=== PATIENT | female | born 2000 | race Caucasian/White ===

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

== ENCOUNTER 2022-11-10 15:51 | Emergency (ER) | payer OTHER ==
--- NOTE | 2022-11-10 16:11 | ED ---
General Adult HPI - General Source: patient, RN notes reviewed Mode of arrival: ambulatory Limitations: no limitations <Nhan Han - Last Filed: 11/10/22 16:08> <Kenyatta Self - Last Filed: 11/12/22 16:44> - General Stated complaint: Syncope Time Seen by Provider: 11/10/22 16:08 - History of Present Illness Initial comments: 22-year-old female presents emergency Department via EMS chief complaint of near syncopal episode. Patient states that she was at work when she started having some difficult deep breathing states that she lost her hearing and had some tunnel vision. Patient states that she never fully passed out. She has had episodes like this in the past. Patient denies any chest pain palpitations shortness of breath currently. Denies any chance . Denies any current headache. (Nhan Han) 22-year-old female presents emergency Department with syncope. States that she was at work at [employer] where she had an episode of passing out. Happened within 15 minutes of her being at work. States that she ate poorly this morning. Had a few call me bears and handful of peanuts. Went to work where she suddenly felt short of breath and had tunnel vision. She felt nauseated and had an episode of vomiting. States that she passed out and had stool incontinence. To me, she reports to full passing out episode. There is no seizure-like activity. She did not hurt herself that she was lowered to the floor. No recent illnesses. Denies any abnormal vaginal bleeding or discharge. No concern for . She reports to feeling back to her baseline at this time. No history of cardiac disease. No family history of sudden cardiac . Admits to previous episodes like this in the past No other alleviating, precipitating or modifying factors (Kenyatta Self) - Related Data Home Medications Medication Instructions Recorded Confirmed No Known Home Medications 11/10/22 11/10/22 Allergies Allergy/AdvReac Type Severity Reaction Status Date / Time No Known Allergies Allergy Verified 11/10/22 19:50 Review of Systems ROS Other: All systems not noted in ROS Statement are negative. <Nhan Han - Last Filed: 11/10/22 16:08> ROS Other: All systems not noted in ROS Statement are negative. <Kenyatta Self - Last Filed: 11/12/22 16:44> ROS Statement: Those systems with pertinent positive or pertinent negative responses have been documented in the HPI. Past Medical History Additional Past Medical History / Comment(s): hx of diarrhea, abdominal pain, blood in stool, weight loss History of Any Multi-Drug Resistant Organisms: None Reported Past Surgical History: No Surgical Hx Reported Past Anesthesia/Blood Transfusion Reactions: No Reported Reaction Smoking Status: Never smoker - Past Family History Mother Family Medical History: Cancer Additional Family Medical History / Comment(s): melanoma, brain <Nhan Han - Last Filed: 11/10/22 16:08> General Exam General appearance: alert, in no apparent distress Head exam: Present: atraumatic, normocephalic, normal inspection Eye exam: Present: normal appearance, PERRL, EOMI. Absent: scleral icterus, conjunctival injection, periorbital swelling ENT exam: Present: normal exam, mucous membranes moist Neck exam: Present: normal inspection. Absent: tenderness, meningismus, lymphadenopathy Respiratory exam: Present: normal lung sounds bilaterally. Absent: respiratory distress, wheezes, rales, rhonchi, stridor Cardiovascular Exam: Present: regular rate, normal rhythm, normal heart sounds. Absent: systolic murmur, diastolic murmur, rubs, gallop, clicks GI/Abdominal exam: Present: soft, normal bowel sounds. Absent: distended, tenderness, guarding, rebound, rigid Extremities exam: Present: normal inspection, full ROM, normal capillary refill. Absent: tenderness, pedal edema, joint swelling, calf tenderness Back exam: Present: normal inspection Neurological exam: Present: alert, oriented X3, CN II-XII intact Psychiatric exam: Present: normal affect, normal mood Skin exam: Present: warm, dry, intact, normal color. Absent: rash <Kenyatta Self A - Last Filed: 11/12/22 16:44> Course Vital Signs 11/10/22 11/10/22 16:51 20:50 Temperature 98.4 F Pulse Rate 84 83 Respiratory 20 14 Rate Blood Pressure 121/82 111/69 O2 Sat by Pulse 99 100 Oximetry EKG Findings - EKG Comments: EKG Findings:: EKG demonstrates sinus rhythm with a rate of 84. WI interval 170. QRS 93. QTC of 395. No acute ST segment elevations or depressions <Kenyatta Self - Last Filed: 11/12/22 16:44> Medical Decision Making - Lab Data Result diagrams: 11/10/22 19:35 11/10/22 19:35 <Kenyatta Self - Last Filed: 11/12/22 16:44> - Medical Decision Making Was pt. sent in by a medical professional or institution? @ -No Did you speak to anyone other than the patient for history? @ -No Did you review nursing and triage notes? @ -Yes and I agree Were old charts reviewed? @ -No Differential Diagnosis? @ MDM Differential Syncope: Valvular disease, hypertrophic cardiomyopathy, pulmonary embolism, tamponade, tachycardia, bradycardia, OK, hypovolemia, hemorrhage, dissection, anemia, intracranial hemorrhage, seizure, hypoglycemia, carbon monoxide poisoning this is not meant to be an all-inclusive list. EKG interpreted by me (3pts min.)? @ -yes X-rays interpreted by me (1pt min.)? @ -no CT interpreted by me (1pt min.)? @ -no U/S interpreted by me (1pt. min.)? @ -no What testing was considered but not performed? (CT, X-rays, U/S, labs)? Why? @ none What meds were considered but not given? Why? @ -none Did you discuss the management of the patient with other professionals? @ -none Did you reconcile home meds? @ -No Was smoking cessation discussed for >3mins.? @ -No Was critical care preformed (if so, how long)? @ -No Were there social determinants of health that impacted care today? How? (Homelessness, low income, unemployed, alcoholism, drug addiction, transportation, low edu. Level, literacy, decrease access to med. care, intermediate, rehab)? @ None Was there de-escalation of care discussed even if they declined? (Discuss DNR or withdrawal of care, Hospice)? @ None What co-morbidities impacted this encounter? (DM, HTN, Smoking, COPD, CAD, Cancer, CVA, Hep., AIDS, mental health diagnosis, sleep apnea, morbid obesity)? @ -None Was patient admitted / discharged? Upon arrival patient was placed into room 7. A thorough history and physical exam was performed. IV is established. Patient given a liter bolus of normal saline. Laboratory studies are conducted. Twelve-lead EKG demonstrates no signs of cardiac arrhythmia. Reevaluation demonstrates improvement in the patient's symptoms. She'll be discharged home at this time. Did recommend better eating habits. Follow up with her doctor for Holter monitoring and echo. Return for any new or worsening symptoms. Patient agreeable to she and she is discharged home in stable condition Undiagnosed new problem with uncertain prognosis? @ -yes Drug Therapy requiring intensive monitoring for toxicity (Heparin, Nitro, Insulin, Cardizem)? @ No Were any procedures done? @ No Diagnosis/symptom? @ -acute syncope Acute, or Chronic, or Acute on Chronic? @ -acute Uncomplicated (without systemic symptoms) or Complicated (systemic symptoms)? @ -complicated Side effects of treatment? @ None Exacerbation, Progression, or Severe Exacerbation] @ No Poses a threat to life or bodily function? @ Yes (Kenyatta Self) - Lab Data Lab Results 11/10/22 11/10/22 11/10/22 Range/Units 19:35 19:35 20:42 WBC 12.4 H (4.0-11.0) k/uL RBC 4.94 (3.80-5.40) m/uL Hgb 14.9 (11.4-16.0) gm/dL Hct 44.4 (34.0-46.0) % MCV 89.8 (80.0-100.0) fL MCH 30.3 (25.0-35.0) pg MCHC 33.7 (31.0-37.0) g/dL RDW 12.2 (11.5-15.5) % Plt Count 283 (150-450) k/uL MPV 8.2 Neutrophils % 77 % Lymphocytes % 17 % Monocytes % 4 % Eosinophils % 1 % Basophils % 1 % Neutrophils # 9.6 H (1.3-7.7) k/uL Lymphocytes # 2.1 (1.0-4.8) k/uL Monocytes # 0.5 (0-1.0) k/uL Eosinophils # 0.1 (0-0.7) k/uL Basophils # 0.1 (0-0.2) k/uL Sodium 139 (137-145) mmol/L Potassium 3.7 (3.5-5.1) mmol/L Chloride 109 H (98-107) mmol/L Carbon Dioxide 23 (22-30) mmol/L Anion Gap 7 mmol/L BUN 11 (7-17) mg/dL Creatinine 0.55 (0.52-1.04) mg/dL Est GFR (CKD-EPI)AfAm >90 (>60 ml/min/1.73 sqM) Est GFR (CKD-EPI)NonAf >90 (>60 ml/min/1.73 sqM) Glucose 94 (74-99) mg/dL Calcium 8.8 (8.4-10.2) mg/dL Total Bilirubin 0.4 (0.2-1.3) mg/dL AST 25 (14-36) U/L ALT 16 (4-34) U/L Alkaline Phosphatase 82 (38-126) U/L Total Protein 7.8 (6.3-8.2) g/dL Albumin 4.7 (3.5-5.0) g/dL HCG, Qual Not Detected Disposition <Nhan Han - Last Filed: 11/10/22 16:08> Is patient prescribed a controlled substance at d/c from ED?: No Time of Disposition: 21:23 <Kenyatta Self - Last Filed: 11/12/22 16:44> Clinical Impression: Syncope Disposition: HOME SELF-CARE Condition: Stable Instructions (If sedation given, give patient instructions): Syncope (ED) Additional Instructions: Please follow up with your primary care doctor in 2-4 days and return for any new or worsening symptoms. i recommend an echo of your heart. Referrals: None,Stated [Primary Care Provider] - 1-2 days
[2022-11-10 16:53] VITALS: TEMP 98.4
[2022-11-10 19:43] LABS: Basophils # (A) 0.1 k/uL (0-0.2); Basophils % (A) 1 %; Eosinophils # (A) 0.1 k/uL (0-0.7); Eosinophils % (A) 1 %; HCT 44.4 % (34.0-46.0); HGB 14.9 gm/dL (11.4-16.0); Lymphocytes # (A) 2.1 k/uL (1.0-4.8); Lymphocytes % (A) 17 %; MCH 30.3 pg (25.0-35.0); MCHC 33.7 g/dL (31.0-37.0); MCV 89.8 fL (80.0-100.0); Mean Platelet Volume 8.2; Monocytes # (A) 0.5 k/uL (0-1.0); Monocytes % (A) 4 %; Neutrophils # (A) 9.6 k/uL (1.3-7.7); Neutrophils % (A) 77 %; Platelet Count 283 k/uL (150-450); RBC 4.94 m/uL (3.80-5.40); RDW 12.2 % (11.5-15.5); WBC 12.4 k/uL (4.0-11.0)
[2022-11-10 19:53] LABS: ALT 16 U/L (4-34); AST 25 U/L (14-36); African American GFR (CKD) >90 (>60 ml/min/1.73 sqM); Albumin 4.7 g/dL (3.5-5.0); Alkaline Phosphatase 82 U/L (38-126); Anion Gap 7 mmol/L; Blood Urea Nitrogen 11 mg/dL (7-17); Calcium 8.8 mg/dL (8.4-10.2); Carbon Dioxide 23 mmol/L (22-30); Chloride 109 mmol/L (98-107); Glucose 94 mg/dL (74-99); Non-African American GFR(CKD) >90 (>60 ml/min/1.73 sqM); Potassium 3.7 mmol/L (3.5-5.1); Sodium 139 mmol/L (137-145); Total Bilirubin 0.4 mg/dL (0.2-1.3); Total Protein 7.8 g/dL (6.3-8.2)
[2022-11-10] MEDS ORDERED: SODIUM CHLORIDE 0.9% 1,000 ML IV ONE (20:40)
[2022-11-10 20:52] VITALS: BP 111/69; PULSE 83; RESP 14
== END 2022-11-10 21:40 | disposition home or self-care (01) ==
LOC: EC 15:51
DX: R55 Syncope and collapse (principal)
CPT/HCPCS: 36415; 80053; 84703; 85025; 93005; 96360; 99284